=== PATIENT | male | born 1945 | race Caucasian/White ===

== ENCOUNTER 2019-10-03 09:05 | Outpatient (CLI) | payer MEDICARE ==
[2019-10-03 15:33] LABS: ALBUMIN/GLOBULIN RATIO 1.3 (1.0-2.2); ALKALINE PHOSPHATASE 62 IU/L (42-121); ALT ALANINE AMINOTRANSFERASE 22 IU/L (10-60); AST ASPARTATE AMINOTRANSFERASE 20 IU/L (10-42); BILIRUBIN,TOTAL 0.8 mg/dL (0.2-1.0); BUN - BLOOD UREA NITROGEN 25 mg/dL (6-20); CALCIUM 9.3 mg/dL (8.5-10.3); CARBON DIOXIDE - CO2 26 mmol/L (21-32); CHLORIDE 102 mmol/L (101-111); CHOL/HDL RATIO 1.8 (<5.0); CHOLESTEROL 109 mg/dL; CREATININE 0.9 mg/dL (0.6-1.2); GLUCOSE 101 mg/dL (70-100); HDL CHOLESTEROL 61 mg/dL; LDL CHOLESTEROL,CALCULATED 40 mg/dL; LDL/HDL RATIO 0.7 (<3.6); SODIUM 137 mmol/L (135-145); TOTAL PROTEIN 7.2 g/dL (6.7-8.2); VLDL CHOLESTEROL 8 mg/dL
[2019-10-03 15:37] LABS: HB2 TOTAL 13.9 g/dL; HEMOGLOBIN A1C 1.3 g/dL; HEMOGLOBIN A1C % 10.7 % (4.6-6.2)
== END 2019-10-03 09:06 | disposition home or self-care (01) ==
LOC: LAB.S 09:05
DX: E11.59 Type 2 diabetes mellitus with other circulatory complications (principal); E78.5 Hyperlipidemia, unspecified; I10 Essential (primary) hypertension; E72.11 Homocystinuria
CPT/HCPCS: 36415; 80053; 80061; 83036; 83721

== ENCOUNTER 2020-08-27 07:56 | Outpatient (CLI) | payer MEDICARE ==
[2020-08-27 14:33] LABS: ALBUMIN 4.2 g/dL (3.2-5.5); ALBUMIN/GLOBULIN RATIO 1.5 (1.0-2.2); ALKALINE PHOSPHATASE 58 IU/L (42-121); ALT ALANINE AMINOTRANSFERASE 28 IU/L (10-60); AST ASPARTATE AMINOTRANSFERASE 26 IU/L (10-42); BILIRUBIN,TOTAL 0.8 mg/dL (0.2-1.0); BUN - BLOOD UREA NITROGEN 37 mg/dL (6-20); CALCIUM 9.5 mg/dL (8.5-10.3); CARBON DIOXIDE - CO2 27 mmol/L (21-32); CHLORIDE 108 mmol/L (101-111); CHOL/HDL RATIO 1.8 (<5.0); CHOLESTEROL 123 mg/dL; GFR - MDRD 73 (>89); GLUCOSE 64 mg/dL (70-100); HDL CHOLESTEROL 69 mg/dL; POTASSIUM 4.3 mmol/L (3.5-5.0); SODIUM 143 mmol/L (135-145); TRIGLYCERIDES 32 mg/dL
[2020-08-27 20:38] LABS: ESTIMATED AVERAGE GLUCOSE 137 mg/dL (70-100); HEMOGLOBIN A1c% 6.4 % (4.27-6.07)
== END 2020-08-27 07:57 | disposition home or self-care (01) ==
LOC: LAB.S 07:56
PROVIDERS: ATTEND Family Medicine
DX: E78.5 Hyperlipidemia, unspecified (principal); E11.9 Type 2 diabetes mellitus without complications; I10 Essential (primary) hypertension; L72.11 Pilar cyst; Z79.4 Long term (current) use of insulin
CPT/HCPCS: 36415; 80053; 80061; 83036; 83721

== ENCOUNTER 2021-02-22 08:31 | Day surgery (SDC) | payer MEDICARE, OTHER ==
[2021-02-22] MEDS ORDERED: LACTATED RINGERS 1,000 ML IV ONE ×2 (08:37→10:19)
[2021-02-22] MEDS ORDERED: PROPOFOL 500 MG/50 ML 500 MG/50 ML VIAL ONE (08:58)
[2021-02-22] MEDS ORDERED: MIDAZOLAM 2 MG/2 ML VIAL ONE (09:12)
--- NOTE | 2021-02-22 09:17 | ANESTHESIA ---
Pre-Anesthesia VS, & Labs - Diagnosis history of polyps - Procedure colonoscopy Vital Signs: Temp Pulse Resp BP Pulse Ox 36.6 C 67 16 166/79 H 99 02/22/21 08:48 02/22/21 08:48 02/22/21 08:48 02/22/21 08:48 02/22/21 08:48 Height: 5 ft 10 in Weight (kg): 74.1 kg Body Mass Index: 23.4 BMI Classification: Healthy weight - NPO >8 hours - Lab Results Current Lab Results: Laboratory Tests 02/22/21 09:06: POC Whole Bld Glucose 156 H Home Medications and Allergies Home Medications: Ambulatory Orders Atorvastatin [Lipitor] 40 mg PO DAILY 02/21/21 Dapagliflozin Propanediol [Farxiga] 10 mg PO DAILY 02/21/21 Ergocalciferol [Vitamin D2] PO 02/21/21 Ezetimibe [Zetia] 10 mg PO DAILY 02/21/21 Folic Acid 1 mg PO DAILY 02/21/21 Insulin Glargine [Lantus Solostar] 30 units SQ DAILY 02/21/21 Pioglitazone [Actos] 15 mg PO DAILY 02/21/21 metFORMIN [Glucophage] 500 mg PO BID 02/21/21 Atorvastatin [Lipitor] 40 mg PO DAILY 02/21/21 Dapagliflozin Propanediol [Farxiga] 10 mg PO DAILY 02/21/21 Ergocalciferol [Vitamin D2] PO 02/21/21 Ezetimibe [Zetia] 10 mg PO DAILY 02/21/21 Folic Acid 1 mg PO DAILY 02/21/21 Insulin Glargine [Lantus Solostar] 30 units SQ DAILY 02/21/21 Pioglitazone [Actos] 15 mg PO DAILY 02/21/21 metFORMIN [Glucophage] 500 mg PO BID 02/21/21 Allergies/Adverse Reactions: Allergies Allergy/AdvReac Type Severity Reaction Status Date / Time No Known Drug Allergies Allergy Verified 02/21/21 11:38 Anes History & Medical History - Anesthetic History Anesthesia Complications: reports: No previous complications - Medical History Cardiovascular: reports: High cholesterol Pulmonary: reports: None Gastrointestinal: reports: Colon polyps Urinary: reports: None Musculoskeletal: reports: None Endocrine/Autoimmune: reports: Type 2 diabetes Skin: reports: None Smoking Status: Former smoker History of Cancer?: No Exam General: Alert, Oriented x3 Dental: WNL Neck Mobility: Normal Mallampati classification: II Thyromental Distance: greater than 6 cm Respiratory: Lungs clear Cardiovascular: Regular rate Plan Anesthesia Type: Total IV Consent for Procedure(s) Verified and Reviewed: Yes Code Status: Attempt Resuscitation ASA classification: 2-Mild systemic disease Is this case an emergency?: No
--- NOTE | 2021-02-22 09:39 | HISTORY & PHYSICAL EXAMINATION ---
Chief Complaint - Chief Complaint Chief Complaint: history colon polyps History of Present Illness - History Obtained From Records Reviewed: yes History obtained from: pt Exam Limitations: none - History of Present Illness HPI Comment/Other: History piecemeal resection colon polyp 3 years ago. Due for surveillance. History - Past Medical History Cardiovascular: reports: High cholesterol Respiratory: reports: None Endocrine/Autoimmune: reports: Type 2 diabetes GI: reports: Colon polyps : reports: None HEENT: reports: None Psych: reports: None Musculoskeletal: reports: None Derm: reports: None MRSA Hx?: No Meds/Allgy - Home Medications Home Medications: Ambulatory Orders Medication Instructions Recorded Confirmed Atorvastatin [Lipitor] 40 mg PO DAILY 02/21/21 02/21/21 Dapagliflozin Propanediol [Farxiga] 10 mg PO DAILY 02/21/21 02/21/21 Ergocalciferol [Vitamin D2] PO 02/21/21 02/21/21 Ezetimibe [Zetia] 10 mg PO DAILY 02/21/21 02/21/21 Folic Acid 1 mg PO DAILY 02/21/21 02/21/21 Insulin Glargine [Lantus Solostar] 30 units SQ DAILY 02/21/21 02/21/21 Pioglitazone [Actos] 15 mg PO DAILY 02/21/21 02/21/21 metFORMIN [Glucophage] 500 mg PO BID 02/21/21 02/21/21 - Allergies Allergies/Adverse Reactions: Allergies Allergy/AdvReac Type Severity Reaction Status Date / Time No Known Drug Allergies Allergy Verified 02/21/21 11:38 Review of Systems - Other Findings Other Findings: 10 pt ros as above otherwise unremarkable Exam - Vital Signs Reviewed Vital Signs: Yes Vital Signs: Vital Signs x48h Temp Pulse Resp BP Pulse Ox 02/22/21 08:48 36.6 C 67 16 166/79 H 99 - Physical Exam General Appearance: positive: No acute distress, Alert Eyes Bilateral: positive: PERRL, EOMI ENT: positive: No signs of dehydration Neck: positive: No JVD Respiratory: positive: No respiratory distress, Breath sounds nml Cardiovascular: positive: Regular rate & rhythm Abdomen: positive: Non-tender, No distention Neurologic/Psychiatric: positive: Oriented x3 Conclusion/Plan - Problem List (1) History of adenomatous polyp of colon Conclusion/Plan: plan surveillance colonoscopy. parq held and consent obtained
[2021-02-22 10:45] VITALS: BP 108/66
--- NOTE | 2021-02-22 14:04 | ANESTHESIA POST OP EVALUATION ---
Anesthesia Post Eval - Post Anesthesia Eval Vitals: Last Vital Signs Temp 36.6 C 02/22/21 10:44 Pulse 61 02/22/21 10:44 Resp 16 02/22/21 10:44 BP 108/66 02/22/21 10:44 Pulse Ox 97 02/22/21 10:44 CV Function Including HR & BP: Stable Pain Control: Satisfactory Nausea & Vomiting: Negative Mental Status: Baseline Respiratory Status: Airway Patent Hydration Status: Satisfactory Anesthesia Complications: None
== END 2021-02-22 08:32 | disposition home or self-care (01) ==
LOC: SDS 08:31
PROVIDERS: ATTEND Surgery
PROC: 0DBL8ZZ Excision of Transverse Colon, Via Natural or Artificial Opening Endoscopic (ICD-10-PCS; 2021-02-22)
PROC: 0DBK8ZZ Excision of Ascending Colon, Via Natural or Artificial Opening Endoscopic (ICD-10-PCS; principal; 2021-02-22 09:30)
DX: Z12.11 Encounter for screening for malignant neoplasm of colon (principal); D12.2 Benign neoplasm of ascending colon; D12.3 Benign neoplasm of transverse colon; K57.30 Diverticulosis of large intestine without perforation or abscess without bleeding; K64.4 Residual hemorrhoidal skin tags; Z87.891 Personal history of nicotine dependence; I45.10 Unspecified right bundle-branch block
CPT/HCPCS: 45380; J7120

== ENCOUNTER 2021-04-05 07:48 | Outpatient (CLI) | payer MEDICARE, OTHER ==
[2021-04-05 15:43] LABS: ALBUMIN 4.1 g/dL (3.2-5.5); ALBUMIN/GLOBULIN RATIO 1.5 (1.0-2.2); ALKALINE PHOSPHATASE 56 IU/L (42-121); ALT ALANINE AMINOTRANSFERASE 27 IU/L (10-60); AST ASPARTATE AMINOTRANSFERASE 25 IU/L (10-42); BILIRUBIN,TOTAL 0.9 mg/dL (0.2-1.0); BUN - BLOOD UREA NITROGEN 37 mg/dL (6-20); CALCIUM 9.3 mg/dL (8.5-10.3); CARBON DIOXIDE - CO2 28 mmol/L (21-32); CHLORIDE 102 mmol/L (101-111); CHOL/HDL RATIO 1.9 (<5.0); CHOLESTEROL 129 mg/dL; CREATININE 0.9 mg/dL (0.6-1.2); GFR - MDRD 82 (>89); GLUCOSE 65 mg/dL (70-100); HDL CHOLESTEROL 69 mg/dL; POTASSIUM 4.3 mmol/L (3.5-5.0); SODIUM 139 mmol/L (135-145); TOTAL PROTEIN 6.9 g/dL (6.7-8.2); TRIGLYCERIDES 38 mg/dL
[2021-04-05 20:05] LABS: ESTIMATED AVERAGE GLUCOSE 128 mg/dL (70-100); HEMOGLOBIN A1c% 6.1 % (4.27-6.07)
== END 2021-04-05 07:49 | disposition home or self-care (01) ==
LOC: LAB.S 07:48
PROVIDERS: ATTEND Family Medicine
DX: I10 Essential (primary) hypertension (principal); E78.5 Hyperlipidemia, unspecified; E11.9 Type 2 diabetes mellitus without complications
CPT/HCPCS: 36415; 80053; 80061; 83036; 83721

== ENCOUNTER 2022-10-17 07:08 | Outpatient (CLI) | payer MEDICARE, OTHER ==
[2022-10-17 15:22] LABS: CHOL/HDL RATIO 1.6 (<5.0); CHOLESTEROL 97 mg/dL; HDL CHOLESTEROL 60 mg/dL; TRIGLYCERIDES 27 mg/dL
[2022-10-17 17:49] LABS: ESTIMATED AVERAGE GLUCOSE 143 mg/dL (70-100); HEMOGLOBIN A1c% 6.6 % (4.27-6.07)
== END 2022-10-17 07:09 | disposition home or self-care (01) ==
LOC: LAB.S 07:08
PROVIDERS: ATTEND Family Medicine
DX: E78.5 Hyperlipidemia, unspecified (principal); E11.9 Type 2 diabetes mellitus without complications
CPT/HCPCS: 36415; 80061; 83036; 83721